=== PATIENT | male | born 1985 | race Caucasian/White ===

== ENCOUNTER → 2024-07-19 13:10 | Outpatient (REF) | payer OTHER, SELFPAY | LOC: RAD 13:10 | PROVIDERS: ATTENDING PHYSICIAN Nurse Practitioner Family; REFERRING PHYSICIAN Surgery | DX: K42.9 Umbilical hernia without obstruction or gangrene (principal) | CPT/HCPCS: 74177; Q9967 ==

== ENCOUNTER 2024-08-27 17:59 | Outpatient (RCR) | payer OTHER, SELFPAY | END 2024-08-27 23:59 | disposition home or self-care (01) | LOC: RPT 17:59 | PROVIDERS: ATTENDING PHYSICIAN Nurse Practitioner Family | DX: K42.9 Umbilical hernia without obstruction or gangrene (principal); Z73.6 Limitation of activities due to disability; M62.81 Muscle weakness (generalized) | CPT/HCPCS: 97014; 97110; 97161; 97530 ==

== ENCOUNTER 2024-09-03 19:11 | Outpatient (RCR) | payer OTHER, SELFPAY | END 2024-09-05 08:37 | disposition home or self-care (01) | LOC: RPT 19:11 | PROVIDERS: ATTENDING PHYSICIAN Nurse Practitioner Family | DX: K42.9 Umbilical hernia without obstruction or gangrene (principal); Z73.6 Limitation of activities due to disability; M62.81 Muscle weakness (generalized) | CPT/HCPCS: 97014; 97110; 97530 ==

== ENCOUNTER 2024-11-22 09:54 | Outpatient (RCR) | payer OTHER, SELFPAY | END 2024-11-23 23:59 | disposition home or self-care (01) | LOC: RPT 09:54 | PROVIDERS: ATTENDING PHYSICIAN Nurse Practitioner Family | DX: K42.9 Umbilical hernia without obstruction or gangrene (principal); Z73.6 Limitation of activities due to disability; M62.81 Muscle weakness (generalized) | CPT/HCPCS: 97014; 97110; 97530 ==

== ENCOUNTER → 2025-06-06 16:44 | Outpatient (REF) | payer OTHER, SELFPAY | LOC: RAD 16:44 | PROVIDERS: ATTENDING PHYSICIAN Otolaryngology; FAMILY PHYSICIAN Nurse Practitioner Family | DX: K11.5 Sialolithiasis (principal) | CPT/HCPCS: 70492; Q9967 ==

== ENCOUNTER 2025-07-24 06:12 | Day surgery (SDC) | payer OTHER, SELFPAY ==
[2025-07-24] VITALS (9 sets, daily range): BP systolic 129–146; BP diastolic 85–98; BMI 31.4
[2025-07-24] MEDS: TYLENOL 1000 MG PO (09:25)
[2025-07-24] MEDS: NORMOSOL-R/PLASMALYTE-A 1000 IV (09:26)
[2025-07-24] MEDS: DILAUDID 0.25 MG IV (13:52)
[2025-07-24] MEDS: ZOFRAN 4 MG IV (15:21)
== END 2025-07-24 15:40 | disposition home or self-care (01) ==
LOC: SDS 06:12
PROVIDERS: ATTENDING PHYSICIAN Otolaryngology
DX: K11.5 Sialolithiasis (principal); K11.20 Sialoadenitis, unspecified
CPT/HCPCS: 42440; 88307